=== PATIENT | female | born 1985 | race African-American/Black ===

== ENCOUNTER 2017-08-13 15:44 | Emergency (ER) | payer OTHER ==
[~2017-08-13] VITALS: Ht 152.4 cm; Wt 67.1 kg
[2017-08-13 16:20] VITALS: TEMP 98
[2017-08-13 17:36] LABS: PLATELET COUNT 332 K/uL (152-353)
[2017-08-13 18:15] VITALS: BP 132/92
== END 2017-08-13 18:15 | disposition home or self-care (01) ==
LOC: ED 15:44
PROVIDERS: Family Medicine
DX: N39.0 Urinary tract infection, site not specified (principal)
CPT/HCPCS: 36415; 81000; 85027; 87086; 87088; 99283